=== PATIENT | male | born 1985 | race Caucasian/White ===

== ENCOUNTER 2018-02-07 03:12 | Emergency (ER) | payer MEDICAID ==
[~2018-02-07] VITALS: Ht 180.3 cm; Wt 108.9 kg
[2018-02-07 03:12] VITALS: BP_SYST 135
[2018-02-07 03:40] VITALS: BP_SYST 127
== END 2018-02-07 03:46 | disposition home or self-care (01) ==
LOC: SED 03:12
DX: F41.9 Anxiety disorder, unspecified (principal)
CPT/HCPCS: 93005; 99283